=== PATIENT | male | born 1995 | race Caucasian/White ===

== ENCOUNTER → 2017-12-02 | Outpatient (CLI) | payer OTHER ==
[~2017-12-02] MED LIST: CLIN300 PO; IBUP100S PO
[2017-12-02 18:09] LABS: Specimen Source URINE
[2017-12-03 17:18] LABS: Source Urine
== END | disposition home or self-care (01) ==
LOC: LAB SHORT 18:07 → LAB EV 18:07
PROVIDERS: Physician Assistant Medical
DX: R30.0 Dysuria (principal)
CPT/HCPCS: 87491; 87591